=== PATIENT | female | born 1970 | race African-American/Black ===

== ENCOUNTER 2018-06-27 14:18 | Emergency (ER) | payer SELFPAY ==
--- NOTE | 2018-06-27 14:28 | PDOC ---
Rapid Medical Evaluation Chief Complaint: Back Pain Time Seen by Provider: 06/27/18 14:25 Medical Evaluation: 06/27/18 14:25 I have performed a brief in-person evaluation of this patient. The patient presents with a chief complaint of: Lt lower back pain radiating down left posterior thigh . no incontinence or saddle paresthesia Pertinent physical exam findings: ambulating in mild distress. mild TTP to left paravertebral muscle of lower lumbar spine I have ordered the following: cg The patient will proceed to the ED for further evaluation. Discharge Disposition - Diagnosis Lumbago Qualifiers: Chronicity: acute Back pain laterality: left Sciatica presence: with sciatica Sciatica laterality: sciatica of left side Qualified Code(s): M54.42 - Lumbago with sciatica, left side - Discharge Dispostion Condition at time of disposition: Stable - Referrals - Patient Instructions - Post Discharge Activity
[2018-06-27 14:30] VITALS: BP 112/68; PULSE 78; TEMP 98.4; BMI 31.4
[2018-06-27] MEDS ORDERED: amLODIPine BESYLATE 5 MG TABLET (FP) ONE (14:45)
[2018-06-27] MEDS ORDERED: LIDOCAINE 5% TOPICAL PATCH TP ONE (15:01)
[2018-06-27] MEDS ORDERED: KETOROLAC TROMETHAMINE 60 MG/2 ML VIAL IM ONE (15:01)
[2018-06-27] MEDS ORDERED: diazePAM 5 MG TABLET PO ONE (15:01)
[2018-06-27] MEDS ORDERED: LIDOCAINE 5% TOPICAL PATCH ONE (15:11)
[2018-06-27] MEDS ORDERED: KETOROLAC TROMETHAMINE 60 MG/2 ML VIAL ONE (15:11)
[2018-06-27] MEDS ORDERED: diazePAM 5 MG TABLET ONE (15:12)
--- NOTE | 2018-06-27 15:48 | PDOC ---
History of Present Illness - General Chief Complaint: Back Pain Stated Complaint: BACK PAIN Time Seen by Provider: 06/27/18 14:25 History Source: Patient Exam Limitations: No Limitations Past History - Travel Traveled outside of the country in the last 30 days: No Close contact w/someone who was outside of country & ill: No - Past Medical History Allergies/Adverse Reactions: Allergies Allergy/AdvReac Type Severity Reaction Status Date / Time No Known Allergies Allergy Verified 06/27/18 14:30 Home Medications: Ambulatory Orders Cyclobenzaprine HCl [Flexeril -] 10 mg PO HS #10 tablet 06/27/18 Methylprednisolone [Medrol Dose Vitor] 4 mg PO ASDIR #21 tablet 06/27/18 - Suicide/Smoking/Psychosocial Hx Smoking History: Never smoked Have you smoked in the past 12 months: No Information on smoking cessation initiated: No Hx Alcohol Use: No Drug/Substance Use Hx: No Review of Systems - Review of Systems Able to Perform ROS?: Yes Comments:: 06/27/18 18:34 CONSTITUTIONAL: Absent: fever, chills, diaphoresis, generalized weakness, malaise, loss of appetite GASTROINTESTINAL: Absent: abdominal pain, abdominal distension, nausea, vomiting, diarrhea, constipation, melena, hematochezia GENITOURINARY: Absent: dysuria, frequency, urgency, hesitancy, hematuria, flank pain, genital pain MUSCULOSKELETAL: Present: low back pain Absent: arthralgia, joint swelling SKIN: Absent: rash, itching, pallor NEUROLOGIC: Absent: headache, focal weakness or paresthesias, dizziness, unsteady gait, seizure, mental status changes, bladder or bowel incontinence PSYCHIATRIC: Absent: anxiety, depression, suicidal or homicidal ideation, hallucinations. *Physical Exam - Vital Signs Last Vital Signs Temp Pulse Resp BP Pulse Ox 98.4 F 78 18 112/68 98 06/27/18 14:25 06/27/18 14:25 06/27/18 14:25 06/27/18 14:25 06/27/18 14:25 - Physical Exam Comments: 06/27/18 18:35 GENERAL: Well developed, well nourished. Awake and alert. No acute distress. MUSCULOSKELETAL TTP of the L paraspinous muscles, L3-L5, with palpable knot consistent with muscle spasm. Patient bent over on exam table. (+) flip test. (-) midline tenderness. Normal range of motion at all joints. No bony deformities or tenderness. No CVA tenderness. EXTREMITIES: No cyanosis. No clubbing. No edema. No calf tenderness. SKIN: Warm and dry. Normal capillary refill. No rashes. No jaundice. NEUROLOGICAL: Alert, awake, appropriate. Cranial nerves 2-12 intact. No deficits to light touch and temperature in face, upper extremities and lower extremities. No motor deficits in the in face, upper extremities and lower extremities. Normoreflexic in the upper and lower extremities. Normal speech. Toes are down- going bilaterally. Gait is normal without ataxia. ED Treatment Course - ADDITIONAL ORDERS Additional order review: Laboratory Results 06/27/18 14:37 Urine HCG, Qual Negative - Medications Given in the ED: ED Medications Discontinued Medications Generic Name Dose Route Start Last Admin Trade Name Freq PRN Reason Stop Dose Admin Diazepam 5 mg 06/27/18 15:06/27/18 15:19 Valium - PO 06/27/18 15:02 5 mg ONCE ONE Administration Ketorolac Tromethamine 60 mg 06/27/18 15:01 06/27/18 15:19 Toradol Injection - IM 06/27/18 15:02 60 mg ONCE ONE Administration Lidocaine 1 patch 06/27/18 15:01 06/27/18 15:19 Lidoderm Patch - TP 06/27/18 15:02 1 patch ONCE ONE Administration Medical Decision Making - Medical Decision Making 06/27/18 18:35 HPI: The patient is a 48-year-old female with past medical history of hypertension, who presents to the ER with 2 days of low back pain. Denies trauma , falling. Patient states that she has had low back pain in the past. However today it is radiating down her left leg. She states she can't stand straight up due to the pain. Denies fevers, chills, numbness and tingling to the extremities , weakness to the extremities, bladder/bowel incontinence and saddle anesthesia. A/P: Low back pain with sciatica to the L leg. -Pt with TTP of the L paraspinous muscles, L3-L5, with palpable knot consistent with muscle spasm. Patient bent over on exam table. (+) flip test. (-) midline tenderness -No trauma, or fever. No saddle anesthesia or bladder/bowel incontinence. No CVA tenderness. -Pt is neurologically intact on exam with no focal findings. -Toradol given with relief of symptoms -DC home. Ortho follow up given for if symptoms do not resolve. -I discussed the physical exam findings, ancillary test results and final diagnoses with the patient. I answered all of the patient's questions. The patient was satisfied with the care received and felt comfortable with the discharge plan and treatment plan. The Patient agrees to follow up with the primary care physician/specialist within 24-72 hours. Return precautions were given. *DC/Admit/Observation/Transfer Diagnosis at time of Disposition: Lumbago Qualifiers: Chronicity: acute Back pain laterality: left Sciatica presence: with sciatica Sciatica laterality: sciatica of left side Qualified Code(s): M54.42 - Lumbago with sciatica, left side - Discharge Dispostion Disposition: HOME Condition at time of disposition: Stable Decision to Admit order: No - Prescriptions Prescriptions: Cyclobenzaprine HCl [Flexeril -] 10 mg PO HS #10 tablet Methylprednisolone [Medrol Dose Vitor] 4 mg PO ASDIR #21 tablet - Referrals Referrals: Juliane Hdz [Primary Care Provider] - Sudheer Peña MD, FAANS [Staff Physician] - - Patient Instructions Printed Discharge Instructions: DI for Back Pain With Sciatica Additional Instructions: You have low back pain due to a muscle spasm. Please take the steroids as directed. You were also prescribed Flexeril. Please take this medication every 8 hours for the first day. Then take the medication before you go to bed. Do not drive after taking this medication as it may make you sleepy. You may use warm compresses on your back to help with her symptoms. Please follow-up with your primary care doctor. If your symptoms do not resolve in 3-5 days, follow- up with orthopedics. A referral has been provided for you. Return to the emergency department if you have worsening back pain, bladder or bowel incontinence, numbness and tingling in her legs, changes in the way you walk, or any new or worsening symptoms. - Post Discharge Activity Forms/Work/School Notes: Back to Work
[2018-06-27] MEDS ORDERED: LIDOCAINE PATCH REMOVAL MC SCH (22:00)
== END 2018-06-27 15:56 | disposition home or self-care (01) ==
LOC: JERFT 14:18
PROC: 3E0233Z Introduction of Anti-inflammatory into Muscle, Percutaneous Approach (ICD-10-PCS; principal; 2018-06-27)
DX: M54.42 Lumbago with sciatica, left side (principal)
CPT/HCPCS: 84703; 99281-25

== ENCOUNTER 2019-04-21 14:36 | Emergency (ER) | payer OTHER ==
[2019-04-21 15:00] VITALS: BP 155/91; PULSE 68; TEMP 97.9; BMI 35.7
--- NOTE | 2019-04-21 15:00 | PDOC ---
Rapid Medical Evaluation Time Seen by Provider: 04/21/19 14:58 Medical Evaluation: Allergies Allergy/AdvReac Type Severity Reaction Status Date / Time No Known Allergies Allergy Verified 04/21/19 14:56 04/21/19 14:58 This patient had brief-in person evaluation in triage cc: right hand pain x 3 weeks HPI: Patient reports pain to right thumb radiating into right wrist and up right arm x 3 weeks States hitting hand on a metal cage 3 weeks ago, now pain remains. Denies numbness or tingling PE:Nad unlabored breathing right hand with no swelling, pain with movement of finger to able to ROM orders:xray This patient will proceed to main ed for further evaluation Discharge Disposition - Diagnosis Hand pain, right - Referrals - Patient Instructions - Post Discharge Activity
--- NOTE | 2019-04-21 16:40 | PDOC ---
History of Present Illness - General Chief Complaint: Injury Stated Complaint: INJURY Time Seen by Provider: 04/21/19 14:58 History Source: Patient Exam Limitations: No Limitations Past History - Travel Traveled outside of the country in the last 30 days: No Close contact w/someone who was outside of country & ill: No - Past Medical History Allergies/Adverse Reactions: Allergies Allergy/AdvReac Type Severity Reaction Status Date / Time No Known Allergies Allergy Verified 04/21/19 14:56 Home Medications: Ambulatory Orders Cyclobenzaprine HCl [Flexeril -] 10 mg PO HS #10 tablet 06/27/18 Methylprednisolone [Medrol Dose Vitor] 4 mg PO ASDIR #21 tablet 06/27/18 Oxycodone HCl/Acetaminophen [Percocet 5-325 mg Tablet] 1 tab PO Q6H PRN #10 tablet MDD 4 04/21/19 COPD: No HTN: Yes - Immunization History Immunization Up to Date: Yes - Psycho Social/Smoking Cessation Hx Smoking History: Never smoked Have you smoked in the past 12 months: No Hx Alcohol Use: No Drug/Substance Use Hx: No Review of Systems - Review of Systems Able to Perform ROS?: Yes Comments:: 04/21/19 19:09 CONSTITUTIONAL: Absent: fever, chills, diaphoresis, generalized weakness, malaise, loss of appetite MUSCULOSKELETAL: Present: R hand pain Absent: myalgia, arthralgia, joint swelling SKIN: Absent: rash, itching, pallor NEUROLOGIC: Absent: headache, focal weakness or paresthesias, dizziness, unsteady gait, seizure, mental status changes, bladder or bowel incontinence PSYCHIATRIC: Absent: anxiety, depression, suicidal or homicidal ideation, hallucinations. Is the patient limited [place] proficient: No *Physical Exam - Vital Signs Last Vital Signs Temp Pulse Resp BP Pulse Ox 97.9 F 68 18 155/91 99 04/21/19 14:56 04/21/19 14:56 04/21/19 14:56 04/21/19 14:56 04/21/19 14:56 - Physical Exam 04/21/19 19:06 GENERAL: The patient is awake, alert, and fully oriented, in no acute distress. HEAD: Normal with no signs of trauma. EYES: Pupils equal, round and reactive to light, extraocular movements intact, sclera anicteric, conjunctiva clear. EXTREMITIES: tenderness to palpation of the right thenar eminence over the scaphoid. Normal range of motion, no edema. NEUROLOGICAL: Normal speech, normal gait. PSYCH: Normal mood, normal affect. SKIN: Warm, Dry, normal turgor, no rashes or lesions noted. Medical Decision Making - Medical Decision Making 04/21/19 19:07 The patient is a 48-year-old female with no past medical history who presents to the ER today for right hand pain. She states her hands been bothering her for approximately 3 weeks. She states when she was at work she got her hand caught between laundry crate and the wall. She states that hit her right hand. The patient is right-hand dominant. She states that the hand intermittently swells. Denies numbness and tingling weakness to the extremity. A/P: Right hand pain On exam there is tenderness in the anatomic snuffbox and over the scaphoid joint. X-ray shows a questionable fracture within the scaphoid We will treat as a fracture and put the patient in an thumb spica and sent to orthopedics. Explained the importance that the patient follows up within the week to the hand specialist as these types of fractures generally have poor healing. Discharge home with pain control I discussed the physical exam findings, ancillary test results and final diagnoses with the patient. I answered all of the patient's questions. The patient was satisfied with the care received and felt comfortable with the discharge plan and treatment plan. The Patient agrees to follow up with the primary care physician/specialist within 24-72 hours. Return precautions were given. Discharge - Discharge Information Problems reviewed: Yes Clinical Impression/Diagnosis: Hand pain, right Condition: Stable Disposition: HOME - Admission No - Additional Discharge Information Prescriptions: Oxycodone HCl/Acetaminophen [Percocet 5-325 mg Tablet] 1 tab PO Q6H PRN #10 tablet MDD 4 PRN Reason: Pain - Follow up/Referral Referrals: Stanley Duffy MD [Staff Physician] - Sim Gross MD [Staff Physician] - - Patient Discharge Instructions Patient Printed Discharge Instructions: DI for Hand Pain Additional Instructions: You were evaluated for your hand pain today. You were placed in a thumb spica splint to help with your pain. Your x-ray did not show an obvious fracture, however you may have injured the scaphoid bone. Please follow-up with orthopedics this week. A referral has been provided to you. Please call the office now. Aleve twice a day as needed for the pain. Follow the dosing instructions on the bottle. You may take a Percocet as needed for breakthrough pain at night. Do not drink or drive after takes medications may make you drowsy. Do not get the splint wet. Leave it on to see orthopedics. You may ice the hand over the splint. Return to the ER for worsening pain, numbness and tingling if you have any changes in your symptoms. - Post Discharge Activity Work/Back to School Note: Back to Work
== END 2019-04-21 16:44 | disposition home or self-care (01) ==
LOC: JERFT 14:36
PROC: 2W3GX1Z Immobilization of Right Thumb using Splint (ICD-10-PCS; principal; 2019-04-21)
DX: S69.81XA Other specified injuries of right wrist, hand and finger(s), initial encounter (principal); M79.641 Pain in right hand; W22.8XXA Striking against or struck by other objects, initial encounter; Y93.89 Activity, other specified; Y92.69 Other specified industrial and construction area as the place of occurrence of the external cause; Y99.0 Civilian activity done for income or pay
CPT/HCPCS: 29130; 73110-TC-RT-FY; 73130-TC-RT-FY; 99282-25

== ENCOUNTER 2021-09-20 20:46 | Emergency (ER) | payer OTHER ==
[2021-09-20 21:01] VITALS: BP 153/91; PULSE 79; TEMP 98.9; BMI 33.3
[2021-09-21] MEDS ORDERED: LIDOCAINE 5% TOPICAL PATCH TP ONE (00:07)
[2021-09-21] MEDS ORDERED: KETOROLAC TROMETHAMINE 30 MG/1 ML VIAL IM ONE (00:07)
[2021-09-21] MEDS ORDERED: ACETAMINOPHEN 325 MG TABLET (FP) PO ONE (00:07)
[2021-09-21] MEDS ORDERED: LIDOCAINE 5% TOPICAL PATCH ONE (00:14)
[2021-09-21] MEDS ORDERED: KETOROLAC TROMETHAMINE 30 MG/1 ML VIAL ONE (00:14)
[2021-09-21] MEDS ORDERED: ACETAMINOPHEN 325 MG TABLET (FP) ONE (00:14)
[2021-09-21] MEDS ORDERED: LIDOCAINE PATCH REMOVAL MC SCH (22:00)
== END 2021-09-21 00:59 | disposition home or self-care (01) ==
LOC: JERFT 20:46 → JER 20:46
PROC: 3E0233Z Introduction of Anti-inflammatory into Muscle, Percutaneous Approach (ICD-10-PCS; principal; 2021-09-20)
DX: S39.012A Strain of muscle, fascia and tendon of lower back, initial encounter (principal); X50.0XXA Overexertion from strenuous movement or load, initial encounter
CPT/HCPCS: 99284-25

== ENCOUNTER 2022-12-03 22:06 | Emergency (ER) | payer OTHER ==
[2022-12-03 22:15] VITALS: BP 122/78; PULSE 88; RESP 18; TEMP 98.1; BMI 32.9
[2022-12-03] MEDS ORDERED: ACETAMINOPHEN 1000 MG/100 ML BAG IVPB ONE (23:10)
[2022-12-03] MEDS ORDERED: ACETAMINOPHEN INJECTION 100 ML IVPB ONE (23:18)
[2022-12-03 23:24] LABS: EOS % 2.1 % (0-4.5); HEMATOCRIT 36.4 % (32.4-45.2); HEMOGLOBIN 12.1 GM/dL (10.7-15.3); LYMPH % 38.6 % (8-40); MCH 25.5 pg (25.7-33.7); MCHC 33.3 g/dl (32.0-36.0); MEAN CELL VOLUME 76.7 fl (80-96); MEAN PLT VOLUME 8.2 fl (7.5-11.1); MONO % 6.1 % (3.8-10.2); NEUT % 52.2 % (42.8-82.8); PLATELET COUNT 283 10^3/uL (134-434); RBC 4.74 M/mm3 (3.60-5.2); RDW 15.6 % (11.6-15.6)
[2022-12-03 23:35] LABS: INR 1.07 (0.83-1.09); PROTHROMBIN TIME (PATIENT) 12.4 SEC (9.7-13.0)
[2022-12-03 23:38] LABS: ACTIVATED PTT 31.7 SECONDS (25.2-36.5)
[2022-12-03 23:46] LABS: POTASSIUM 3.3 mmol/L (3.5-5.1)
[2022-12-03 23:48] LABS: CALCIUM 8.5 mg/dL (8.5-10.1)
[2022-12-03 23:49] LABS: ALBUMIN 3.6 g/dl (3.4-5.0); BLOOD UREA NITROGEN 18.8 mg/dL (7-18)
[2022-12-03 23:53] LABS: BILIRUBIN,TOTAL 0.5 mg/dL (0.2-1); TOT PROT 6.8 g/dl (6.4-8.2)
[2022-12-03 23:57] LABS: ERYTHROCYTE SEDIMENTATION RATE 25 mm/hr (0-30)
[2022-12-04 02:02] LABS: BF WBC & OTHER NUCLEATED CELLS 947 /mm3
[2022-12-04 03:34] LABS: BODY FLUID MESOTHELIAL 2 %; BODY FLUID MONOCYTE 10 %
== END 2022-12-04 02:53 | disposition home or self-care (01) ==
LOC: JER 22:06
PROC: 0S9C3ZZ Drainage of Right Knee Joint, Percutaneous Approach (ICD-10-PCS; principal; 2022-12-03)
PROC: 3E033NZ Introduction of Analgesics, Hypnotics, Sedatives into Peripheral Vein, Percutaneous Approach (ICD-10-PCS; 2022-12-03)
DX: M25.562 Pain in left knee (principal); M25.462 Effusion, left knee
CPT/HCPCS: 36415; 73564-TC-LT-FY; 80053; 84560; 85025; 85610; 85651; 85730; 86140; 87070; 87075; 87205; 89060; 93971-TC; 99285-25

== ENCOUNTER 2023-06-27 08:18 | Emergency (ER) | payer OTHER ==
[2023-06-27 08:22] VITALS: BP 131/85; PULSE 82; RESP 18; TEMP 98.4; BMI 33.3
[2023-06-27] MEDS ORDERED: LIDOCAINE 4% PATCH TP ONE (10:05)
[2023-06-27] MEDS ORDERED: KETOROLAC TROMETHAMINE 30 MG/1 ML VIAL ONE (10:05)
[2023-06-27] MEDS: LIDOCAINE 4% PATCH TP ONE (10:08)
[2023-06-27] MEDS: KETOROLAC TROMETHAMINE 30 MG/1 ML VIAL IM ONE (10:09)
== END 2023-06-27 10:29 | disposition home or self-care (01) ==
LOC: JER 08:18 → JERFT 08:18
PROC: 3E0233Z Introduction of Anti-inflammatory into Muscle, Percutaneous Approach (ICD-10-PCS; principal; 2023-06-27)
DX: S90.31XA Contusion of right foot, initial encounter (principal); M79.671 Pain in right foot; W20.8XXA Other cause of strike by thrown, projected or falling object, initial encounter; Y93.89 Activity, other specified
CPT/HCPCS: 73630-TC-RT-FY; 99284-25

== ENCOUNTER 2024-10-17 21:01 | Emergency (ER) | payer OTHER ==
[2024-10-17 21:08] VITALS: BP 152/79; PULSE 58; RESP 18; TEMP 97.9; BMI 31.6
[2024-10-17] MEDS ORDERED: LIDOCAINE 4% PATCH TP ONE (22:19)
[2024-10-17] MEDS ORDERED: ACETAMINOPHEN 325 MG TABLET (FP) ONE (22:19)
[2024-10-17] MEDS: LIDOCAINE 5% TOPICAL PATCH TP ONE (22:23)
[2024-10-17] MEDS: ACETAMINOPHEN 500 MG TABLET (FP) PO ONE (22:23)
[2024-10-18] MEDS ORDERED: LIDOCAINE PATCH REMOVAL MC SCH (10:00)
== END 2024-10-17 23:02 | disposition home or self-care (01) ==
LOC: JERFT 21:01
DX: M25.562 Pain in left knee (principal)
CPT/HCPCS: 73562-TC-LT-FY; 99283-25